=== PATIENT | male | born 1940 | race Caucasian/White ===

== ENCOUNTER 2021-03-11 16:47 | Inpatient (IN) ==
--- NOTE | 2021-03-11 17:59 | Emergency Department Note ---
HPI General Chief complaint: Shortness of Breath/Dyspnea Stated complaint: Sob Time Seen by Provider: 03/11/21 17:58 Source: EMS Mode of arrival: EMS Limitations: no limitations History of Present Illness HPI Narrative: Narrative: Patient presents by EMS with a complaint of cough and shortness of breath. Over the last week the patient has had gradually worsening cough symptoms and has been feeling short of breath. He is not been febrile or chilled. He has had some chronic nasal congestion and sinus discomfort for the last couple of months. His did call there primary care provider this morning and pres cription for azithromycin, losartan and montelukast was sent to pharmacy. Patient previously been taking lisinopril but was switched to losartan today. Patient's reports she went to [facility] to draft roller picker the prescriptions and when she got back the patient was having coughing fits which made her very nervous. He was feeling short of breath due to the coughing fits and she called for an ambulance to transport him. He has had fairly significant nasal drainage over the last several weeks and his cough has been mildly productive. He denies any prior history of heart attack or heart failure. He has been taking blood pressure medicines for quite some time. Patient denies any chest pain. He is not had any trouble sleeping and has not had to prop himself up more than normal. He is not any abdominal pain, nausea or vomiting. Sinus pain is in his forehead and below his eyes bilaterally. He is not had any aching in his teeth. Related Data Previous Rx's Medication Instructions Recorded montelukast 10 mg tablet 10 mg PO QHS #30 tab 02/09/21 losartan 50 mg tablet 50 mg PO QDAY #30 tab 02/15/21 azithromycin 250 mg tablet See Rx Instructions PO .COMPLEX #6 03/11/21 tab Allergies Allergy/AdvReac Type Severity Reaction Status Date / Time No Known Drug Allergies Allergy Verified 03/11/21 16:49 Review of Systems ROS ROS Narrative: Narrative: Pertinent positives and negatives as noted in HPI. All other systems reviewed and negative. [facility] Narrative Patient History Narrative: Narrative: Medical/Surgical/Family History All Active Problems (Updated 03/11/21 @ 23:19 by Cassie Gerber PA-C) Pneumonia (Acute) Hypoxia (Acute) Allergic rhinitis (Acute) Hyphema of left eye (Acute) Encounter for medication monitoring (Acute) Kidney stones (Chronic ~2006) Joint pain (Chronic) High cholesterol (Chronic) Arthritis (Chronic) Hyperlipidemia (Chronic) Rib pain (Chronic) Abdominal hernia (Chronic) Transient global amnesia (Chronic ~11/07/18) Carpal tunnel syndrome (Chronic) Acne rosacea (Chronic) Cervical radiculopathy (Chronic) Decreased hearing (Chronic) Osteoarthritis (Chronic) Actinic keratosis (Chronic) Elevated blood pressure reading (Chronic) Familial hypercholesterolemia (Chronic) Non-cardiac chest pain (Chronic) Hypertension (Chronic) Back pain (Chronic) Medical History (Updated 03/11/21 @ 23:19 by Cassie Gerber PA-C) Abdominal hernia Acne rosacea Actinic keratosis Arthritis Carpal tunnel syndrome Cervical radiculopathy Decreased hearing Elevated blood pressure reading Familial hypercholesterolemia High cholesterol Hyperlipidemia Joint pain Kidney stones (~2005) Osteoarthritis Rib pain Transient global amnesia (~11/07/18) 24 hrs Surgical History History of bilateral cataract extraction (~2013) History of carpal tunnel repair (~2006) History of carpal tunnel surgery of left wrist (~2015) History of hernia repair (~08/2011) TURP Ventral hernia repair History of prostate surgery (~1993) Family History Other No pertinent family history Social History Smoking Status: Smokeless tobacco Alcohol Intake Frequency: holiday/special occasion only Exam Narrative Narrative: Narrative: Vital signs noted General: No distress. Nontoxic-appearing. Skin: Warm. Dry. No rash. Normal color. Eyes: PERRL. EOMI. ENT: Mild discomfort to percussion of the frontal and maxillary sinuses bilater ally. Mouth: Membranes moist. Normal inspection. Neck: Good ROM. No meningeal signs. Supple. Cardiovascular: Regular rate and rhythm. No murmur. Respiratory: No respiratory distress. Lung sounds decreased in the bases. No rhonchi or rales. Gastrointestinal: Abdomen soft. No tenderness. No distention. Normal bowel sounds. No rebound tenderness or guarding. Back: Normal inspection. No CVA tenderness. No midline tenderness. Extremities: No tenderness. No swelling. No erythema. No edema. Good peripheral pulses x 4 Neurological: No focal neurological deficits observed. Alert. Oriented x 3 General Limitations: no limitations Course Course Course Narrative: 1 view chest x-ray reviewed by myself to be concerning for right lower lobe infiltrate. EKG shows normal sinus rhythm at a rate of 88. Your complexes are narrow at regular was. No ST elevation or depression Labs ordered and reviewed Patient is 87 to 90% on room air at rest and desats to 85% with minimal exertion. He does not wear supplemental oxygen at home and has no prior history of COPD or pulmonary condition Lactic and blood cultures were ordered Patient is medicated with Rocephin and azithromycin for pneumonia and discussed with the hospitalist service for admission. Patient seen in conjunction with attending ER physician, who did evaluate the patient bedside. Vital Signs Vital signs: Vital Signs Temperature 98.2 F 03/11/21 16:49 Pulse Rate 89 03/11/21 16:49 Respiratory Rate 22 03/11/21 16:49 Blood Pressure 140/100 03/11/21 16:49 Pulse Oximetry (%) 95 03/11/21 16:49 Temperature 98.2 F 03/11/21 22:41 Pulse Rate 86 03/11/21 22:41 Respiratory Rate 22 03/11/21 22:41 Blood Pressure 116/87 03/11/21 22:41 Pulse Oximetry (%) 96 03/11/21 22:41 MDM MDM Narrative Medical decision making narrative: Narrative: Lab Data Result diagrams: 03/11/21 19:33 03/11/21 19:33 Labs: Lab Results 03/11/21 03/11/21 Range/Units 19:33 19:33 WBC 10.5 (4.5-11.0) K/mcL RBC 4.57 (4.50-5.90) M/mcL Hgb 14.9 (13.5-16.5) g/dL Hct 45.8 (41.0-55.0) % MCV 100.2 H (80.0-100.0) fL MCH 32.6 (26.0-34.0) pg MCHC 32.5 (31.0-36.0) g/dL RDW 13.4 (11.5-14.5) % Plt Count 215 (140-440) K/mcL MPV 10.5 H (7.4-10.4) fL Neut % (Auto) 72.4 (38.0-78.0) % Lymph % (Auto) 13.1 L (15.0-49.0) % Giles % (Auto) 14.3 H (1.0-12.0) % Eos % (Auto) 0.1 (0.0-7.0) % Baso % (Auto) 0.1 (0.0-2.0) % Lymph # (Auto) 1.37 L (1.50-4.80) K/mcL Giles # (Auto) 1.49 H (0.10-0.90) K/mcL Eos # (Auto) 0.01 (0.00-0.70) K/mcL Baso # (Auto) 0.01 (0.00-0.20) K/mcL Absolute Neutrophils 7.57 (1.80-8.00) K/mcL Sodium 139 (133-145) mmol/L Potassium 4.1 (3.3-5.1) mmol/L Chloride 105 (96-108) mmol/L Carbon Dioxide 27 (22-30) mmol/L Anion Gap 7.0 L (8.0-16.0) BUN 12 (8-23) mg/dL Creatinine 0.6 L (0.7-1.2) mg/dL GFR Calculation 94 Glucose 100 (70-105) mg/dL Calcium 9.3 (8.6-10.4) mg/dL Total Bilirubin 0.4 (0.1-1.0) mg/dL AST 16 (<40) U/L ALT 15 (<40) U/L Alkaline Phosphatase 73 (39-117) U/L Total Protein 6.5 (5.9-8.4) gm/dL Albumin 3.8 (3.2-5.2) gm/dL Globulin 2.7 (2.2-3.7) gm/dL Albumin/Globulin Ratio 1.4 (1.0-2.3) ED POC Tests ED POC Tests: DEMARIO - SARS Antigen Negative Discharge Plan Patient/Caregiver Discharge Instructions Pt seen by TRANSMITTER SUPERVISOR/PA only: No Clinical Impression: Pneumonia, Hypoxia Patient Disposition: Xfer As Inpt ([facility]) Discharge Date/Time: 03/11/21 22:25
--- NOTE | 2021-03-11 19:39 | Emergency Department Note ---
ED Note Addendum Note Addendum: I evaluated this patient in conjunction with the physician health center assistant. I agree with the history examination and medical decision making as documented. In addition, I evaluated the patient in person with the following findings: Patient is complaining of shortness of breath. On exam, he is able to speak c omfortably and full sentences on room air but does have an oxygen saturation of 87 to 89% on room air. I discussed the plan for trial of ambulation and possible admission to the hospital and the patient and his are agreeable
[2021-03-11] MEDS ORDERED: ACETAMINOPHEN 325 MG TABLET PO ONE (20:04)
[2021-03-11] MEDS ORDERED: cefTRIAXone 2 GM in DEXTROSE 5% IN WATER 50 ML IV ONE (20:21)
[2021-03-11] MEDS ORDERED: AZITHROMYCIN 500 MG in DEXTROSE 5% IN WATER 250 ML IV ONE (20:37)
[2021-03-11 20:49] LABS: ALT/SGPT 15 U/L (<40); AST/SGOT 16 U/L (<40); Albumin 3.8 gm/dL (3.2-5.2); Albumin/Globulin Ratio 1.4 (1.0-2.3); Alkaline Phosphatase 73 U/L (39-117); Bilirubin,Total 0.4 mg/dL (0.1-1.0); Blood Urea Nitrogen 12 mg/dL (8-23); Calcium 9.3 mg/dL (8.6-10.4); Carbon Dioxide 27 mmol/L (22-30); Chloride 105 mmol/L (96-108); Globulin 2.7 gm/dL (2.2-3.7); Glomerular Filtration Rate 94; Glucose 100 mg/dL (70-105)
[2021-03-11 21:10] LABS: Basophils # (Auto) 0.01 K/mcL (0.00-0.20); Basophils % (Auto) 0.1 % (0.0-2.0); Eosinophils # (Auto) 0.01 K/mcL (0.00-0.70); Eosinophils % (Auto) 0.1 % (0.0-7.0); Hematocrit 45.8 % (41.0-55.0); Hemoglobin 14.9 g/dL (13.5-16.5); Lymphocytes # (Auto) 1.37 K/mcL (1.50-4.80); Lymphocytes % (Auto) 13.1 % (15.0-49.0); Mean Cell Volume 100.2 fL (80.0-100.0); Mean Corpuscular HGB Conc 32.5 g/dL (31.0-36.0); Mean Platelet Volume 10.5 fL (7.4-10.4); Monocytes # (Auto) 1.49 K/mcL (0.10-0.90); Monocytes % (Auto) 14.3 % (1.0-12.0); Neutrophils % (Auto) 72.4 % (38.0-78.0); Platelet Count 215 K/mcL (140-440); RBC 4.57 M/mcL (4.50-5.90); Red Cell Distribution Width 13.4 % (11.5-14.5); WBC 10.5 K/mcL (4.5-11.0)
--- NOTE | 2021-03-11 21:39 | Internal Med History&Physical ---
HPI History of Present Illness Patient information: Note initiated : 03/11/21 at 9:36 pm Service Date, if different from initiated Date: [] Patient: Dieudonne Lara 80 y/o M admitted on for Sob. Chief Complaint: SOB History of present illness: Mr. Lara is a 80 year old M with a history of hypertension who presents to the ER with 2 weeks onset of gradually progressive shortness of breath/cough. Over the last couple of days patient has been notice d increasing dyspnea progressing from maximal exertion to rest. He is endorses to associated yellow productive sputum but denies chest pain, diaphoresis, fever, chills, diarrhea, lightheadedness or dizziness. He further denies sick contacts Initial work-up in the ER was consistent with pneumonia. White count 10.5, normal biochemical profile. Patient was started on antibiotic coverage after cu ltures were drawn. Subsequently hospitalist service was consulted for admission. Covid test pending. Patient is completed Covid vaccination series. At the time of my evaluation patient is alert and oriented. He was able to answer most the questions and endorsed to history as above. He denies changes in medication, lightheadedness, dizziness, diaphoresis, joint pain arthralgia myalgias, diarrhea or dysuria. He further denies chest palpitation. Review of systems A 10 point review system was performed and is negative except for ones discussed above PFSH PFSH All Active Problems Allergic rhinitis (Acute) Hyphema of left eye (Acute) Encounter for medication monitoring (Acute) Kidney stones (Chronic ~2005) Joint pain (Chronic) High cholesterol (Chronic) Arthritis (Chronic) Hyperlipidemia (Chronic) Rib pain (Chronic) Abdominal hernia (Chronic) Transient global amnesia (Chronic ~11/07/18) Carpal tunnel syndrome (Chronic) Acne rosacea (Chronic) Cervical radiculopathy (Chronic) Decreased hearing (Chronic) Osteoarthritis (Chronic) Actinic keratosis (Chronic) Elevated blood pressure reading (Chronic) Familial hypercholesterolemia (Chronic) Non-cardiac chest pain (Chronic) Hypertension (Chronic) Back pain (Chronic) Medical History Abdominal hernia Acne rosacea Actinic keratosis Arthritis Carpal tunnel syndrome Cervical radiculopathy Decreased hearing Elevated blood pressure reading Familial hypercholesterolemia High cholesterol Hyperlipidemia Joint pain Kidney stones (~2005) Osteoarthritis Rib pain Transient global amnesia (~11/07/18) 24 hrs Surgical History History of bilateral cataract extraction (~2013) History of carpal tunnel repair (~2006) History of carpal tunnel surgery of left wrist (~2015) History of hernia repair (~08/2011) TURP Ventral hernia repair History of prostate surgery (~1993) Family History Other No pertinent family history Social History marital status: occupational status: retired physical activity: none alcohol intake frequency: holiday/special occasion only MEDS/ALLERGIES Home Medications and Allergies Home Medications Medication Instructions Recorded Confirmed Type montelukast 10 mg tablet 10 mg PO QHS #30 tab 02/09/21 02/09/21 Rx losartan 50 mg tablet 50 mg PO QDAY #30 tab 02/15/21 03/11/21 Rx azithromycin 250 mg tablet See Rx Instructions PO .COMPLEX #6 03/11/21 Rx tab Allergies Allergy/AdvReac Type Severity Reaction Status Date / Time No Known Drug Allergies Allergy Verified 03/11/21 16:49 EXAM Constitutional Vitals: Temp Pulse Resp BP Pulse Ox 98.2 F 87 22 147/93 94 03/11/21 16:49 03/11/21 20:31 03/11/21 16:49 03/11/21 20:31 03/11/21 20:31 Anxious admittedly short of breath Head normocephalic Oral cavity moist No ear nose discharge Eye movement symmetrical Neck supple no lymphadenopathy S1-S2 occasionally irregular, tachycardia Nonlabored breathing Nondistended nontender abdomen Lower extremity no cyanosis clubbing or joint swelling Skin no suspicious lesion Psych anxious but alert cooperative Neuro normal higher function DATA Data Completed and Pending Labs: Labs from last 24 hours 03/11/21 03/11/21 19:33 19:33 WBC 10.5 RBC 4.57 Hgb 14.9 Hct 45.8 MCV 100.2 H MCH 32.6 MCHC 32.5 RDW 13.4 Plt Count 215 MPV 10.5 H Neut % (Auto) 72.4 Lymph % (Auto) 13.1 L Sargent % (Auto) 14.3 H Eos % (Auto) 0.1 Baso % (Auto) 0.1 Lymph # (Auto) 1.37 L S[place]ent # (Auto) 1.49 H Eos # (Auto) 0.01 Baso # (Auto) 0.01 Absolute Neutrophils 7.57 Sodium 139 Potassium 4.1 Chloride 105 Carbon Dioxide 27 Anion Gap 7.0 L BUN 12 Creatinine 0.6 L GFR Calculation 94 Glucose 100 Calcium 9.3 Total Bilirubin 0.4 AST 16 ALT 15 Alkaline Phosphatase 73 Total Protein 6.5 Albumin 3.8 Globulin 2.7 Albumin/Globulin Ratio 1.4 A/P Narrative A/P Narrative: * Community-acquired pneumonia-empiric antibiotic coverage. Pulmonary toilet/aspiration precautions. PSI score 100 mandating hospitalization * History of hypertension resume home medications * Prophylaxis Heparin Plan * Inpatient admission * Antibiotic coverage * Aspiration cautions * Pre-existing medical condition management on home medications * Discharge planning Time Spent With Patient Time: Total time spent is greater than 50% in coordination of care (as documented) at patient's floor/unit and/or counseling patient:
[2021-03-11] MEDS ORDERED: cefTRIAXone 2 GM in DEXTROSE 5% IN WATER 50 ML IV SCH (23:05)
[2021-03-11] MEDS ORDERED: ACETAMINOPHEN 325 MG TABLET PO PRN (23:05)
[2021-03-11] MEDS ORDERED: hydrALAZINE 20 MG/ML VIAL IV PRN (23:05)
[2021-03-11] MEDS ORDERED: POTASSIUM CHLORIDE 20 MEQ PACKET PO PRN (23:05)
[2021-03-11] MEDS ORDERED: MELATONIN 3 MG TABLET PO PRN (23:05)
[2021-03-11] MEDS ORDERED: BISACODYL 10 MG SUPP.RECT PR PRN (23:05)
[2021-03-11] MEDS ORDERED: POLYETHYLENE GLYCOL 3350 17 GM PACKET PO PRN (23:05)
[2021-03-11] MEDS ORDERED: AZITHROMYCIN 500 MG in DEXTROSE 5% IN WATER 250 ML IV SCH (23:05)
[2021-03-11] MEDS ORDERED: POTASSIUM CHLORIDE 40 MEQ in DEXTROSE 5% IN WATER 500 ML IV PRN (23:05)
[2021-03-11] MEDS ORDERED: ONDANSETRON 4 MG/2 ML VIAL IV PRN (23:05)
[2021-03-11] MEDS ORDERED: ACETAMINOPHEN 650 MG/65 ML BAG IV PRN (23:05)
[2021-03-11] MEDS ORDERED: MAGNESIUM SULFATE 2 GM/50 ML BAG IV PRN (23:05)
[2021-03-11] MEDS ORDERED: ONDANSETRON 4 MG ODT TABLET SL PRN (23:05)
[2021-03-11] MEDS: 0.9 % SODIUM CHLORIDE 1,000 ML IV SCH (23:10)
[2021-03-11] MEDS: 0.9 % SODIUM CHLORIDE 10 ML SYRINGE IV SCH (23:10)
[2021-03-12] MEDS: guaiFENesin/CODEINE 10 ML UDC PO PRN ×3 (00:13→23:37)
--- NOTE | 2021-03-12 03:31 | XRay Report ---
CLINICAL INFORMATION: sob COMPARISON: 02/28/2020 FINDINGS: The heart is mildly enlarged. Mediastinum and pulmonary vessels are unremarkable. There is minor bibasilar atelectasis. No effusions. IMPRESSION: Mild cardiomegaly with minor bibasilar atelectasis. No CHF Interpreted and Authenticated by: García Sheppard 03/12/21
[2021-03-12] MEDS: 0.9 % SODIUM CHLORIDE 10 ML SYRINGE IV SCH ×3 (04:21→20:15)
[2021-03-12 07:08] LABS: Basophils # (Auto) 0.01 K/mcL (0.00-0.20); Basophils % (Auto) 0.1 % (0.0-2.0); Eosinophils # (Auto) 0.01 K/mcL (0.00-0.70); Eosinophils % (Auto) 0.1 % (0.0-7.0); Hemoglobin 14.9 g/dL (13.5-16.5); Lymphocytes # (Auto) 1.46 K/mcL (1.50-4.80); Lymphocytes % (Auto) 12.9 % (15.0-49.0); Mean Cell Volume 101.5 fL (80.0-100.0); Mean Corpuscular HGB Conc 32.4 g/dL (31.0-36.0); Mean Platelet Volume 10.5 fL (7.4-10.4); Monocytes # (Auto) 1.67 K/mcL (0.10-0.90); Monocytes % (Auto) 14.8 % (1.0-12.0); Neutrophils % (Auto) 72.1 % (38.0-78.0); Platelet Count 193 K/mcL (140-440); RBC 4.53 M/mcL (4.50-5.90); Red Cell Distribution Width 13.5 % (11.5-14.5); WBC 11.3 K/mcL (4.5-11.0)
[2021-03-12 07:53] LABS: ALT/SGPT 12 U/L (<40); AST/SGOT 18 U/L (<40); Albumin 3.5 gm/dL (3.2-5.2); Albumin/Globulin Ratio 1.3 (1.0-2.3); Alkaline Phosphatase 70 U/L (39-117); Bilirubin,Direct < 0.2 mg/dL (0-0.3); Bilirubin,Total 0.4 mg/dL (0.1-1.0); Blood Urea Nitrogen 10 mg/dL (8-23); Carbon Dioxide 25 mmol/L (22-30); Chloride 105 mmol/L (96-108); Globulin 2.6 gm/dL (2.2-3.7); Glomerular Filtration Rate 88; Glucose 91 mg/dL (70-105); Lactate Dehydrogenase 222 U/L (135-225); Phosphorous 2.9 mg/dL (2.5-4.5); Triglycerides 137 mg/dL (<150); Uric Acid 2.9 mg/dL (2.5-8.0)
[2021-03-12] MEDS: MULTIVIT,THER IRON,CA,FA & MIN 1 TABLET PO SCH (08:33)
[2021-03-12] MEDS: HEPARIN 5,000 UNIT/ML VIAL SQ SCH ×2 (08:45→20:20)
[2021-03-12] MEDS: DOCUSATE SODIUM 100 MG CAPSULE PO SCH ×2 (08:51→20:21)
[2021-03-12] MEDS: cefTRIAXone 2 GM in DEXTROSE 5% IN WATER 50 ML IV SCH (09:04)
[2021-03-12] MEDS: AZITHROMYCIN 500 MG in DEXTROSE 5% IN WATER 250 ML IV SCH (10:28)
--- NOTE | 2021-03-12 13:25 | Internal Med Progress Note ---
SUBJECTIVE Subjective Patient information: Note initiated : 03/12/21 at 1:22 pm Service Date, if different from initiated Date: [] Patient: Dieudonne Lara 80 y/o M admitted on 03/11/21 for Sob. Chief Complaint: [] Interval history: Mr. Lara is a 80 year old M with a history of hypertension who presents to the ER with 2 weeks onset of gradually progressive shortness of breath/cough. Over the last couple of days patient has been noticed increasing dyspnea progressing from maximal exertion to rest. He is endorses to associated yellow productive sputum but denies chest pain, diaphoresis, fever, chills, diarrhea, lightheadedness or dizziness. He further denies sick contacts Initial work-up in the ER was consistent with pneumonia. White count 10.5, normal biochemical profile. Patient was started on antibiotic coverage after cultures were drawn. Subsequently hospitalist service was consulted for admission. Covid test pending. Patient is completed Covid vaccination series. At the time of my evaluation patient is alert and oriented. He was able to answer most the questions and endorsed to history as above. He denies changes in medication, lightheadedness, dizziness, diaphoresis, joint pain arthralgia myalgias, diarrhea or dysuria. He further denies chest palpitation. 03/12-patient doing a lot better this morning. On room air. No overnight fever chills, stable hemodynamics, sputum culture gram-positive cocci. Covid nega tive. X-ray chest basilar infiltrate, white count 11.3, urine streptococci/mycoplasma negative. Continue antibiotic coverage. Possible discharge in 24 hours pending clinical improvement. Continue PT OT/diet interventions. Constitutional Vitals: Vital Signs Temp Pulse Resp BP Pulse Ox 98.2 F 85 17 125/67 95 03/12/21 11:23 03/12/21 11:23 03/12/21 11:23 03/12/21 11:23 03/12/21 11:23 Period Temp Pulse Resp BP Sys/Weiss Pulse Ox Last 24 Hr 98.2 F-99.7 F 76-110 17-24 116-161/67-101 88-97 Intake and Output 03/11/21 03/12/21 03/12/21 21:59 05:59 13:59 Intake Total 300 420 Output Total 1475 Balance 300 -1475 420 Weight 92.986 kg 87.815 kg alert oriented Nonlabored breathing Nondistended abdomen No anxiety Intake & Output: Intake & Output 03/11/21 03/12/21 03/12/21 21:59 05:59 13:59 Intake Total 300 420 Output Total 1475 Balance 300 -1475 420 Weight 92.986 kg 87.815 kg Intake: IV 300 300 Zithromax 500 mg In Dextrose 5% 250 250 in Water 250 ml @ 250 mls/hr IV Q24H [facility] Rx#:[id number] Rocephin 2 gm In Dextrose 5% in 50 50 Water 50 ml @ 100 mls/hr IV Q24H [facility] Rx#:[id number] Oral 120 Output: Void Amount 1475 Other: Meal Breakfast Percent of Meal Consumed 100% Urine Appearance Clear Urine Color Bright Yellow Stool Size Moderate Stool Color Brown Stool Consistency Formed # Voids 1 # Bowel Movements 1 OBJ DATA Labs CBC & Chem 7: 03/12/21 05:47 03/12/21 05:46 Labs: Abnormal Lab Results 03/12/21 03/11/21 03/11/21 05:47 19:33 19:33 WBC 11.3 H MCV 101.5 H 100.2 H MPV 10.5 H 10.5 H Lymph % (Auto) 12.9 L 13.1 L [place] % (Auto) 14.8 H 14.3 H Lymph # (Auto) 1.46 L 1.37 L [place] # (Auto) 1.67 H 1.49 H Absolute Neutrophils 8.13 H Anion Gap 7.0 L Creatinine 0.6 L Meds: Medications Acetaminophen (Acetaminophen 325 Mg Tablet) 650 mg PO Q4-6HP PRN; Protocol PRN Reason: Per Pain Protocol/Fever > 101 Bisacodyl (Bisacodyl 10 Mg Supp.Rect) 10 mg IN Q2-3DAYS PRN PRN Reason: Constipation Docusate Sodium (Docusate Sodium 100 Mg Capsule) 100 mg PO BID [facility] Last Admin: 03/12/21 08:51 Dose: Not Given Documented by: Guaifenesin/Codeine Phosphate (Guaifenesin/Codeine 10 Ml Udc) 10 ml PO Q4HP PRN PRN Reason: Cough Last Admin: 03/12/21 08:34 Dose: 10 ml Documented by: Heparin Sodium (Porcine) (Heparin 5,000 Unit/Ml Vial) 5,000 unit SQ Q12 [facility] Last Admin: 03/12/21 08:45 Dose: 5,000 unit Documented by: Hydralazine HCl (Hydralazine 20 Mg/Ml Vial) 10 mg IV Q4-6HP PRN PRN Reason: Hypertension Potassium Chloride 40 meq/ (Dextrose) 520 mls @ 130 mls/hr IV UD PRN PRN Reason: K+ = or < 3.5 Magnesium Sulfate (Magnesium Sulfate) 2 gm in 50 mls @ 50 mls/hr IV UD PRN PRN Reason: MG = or < 1.7 Acetaminophen (Ofirmev) 650 mg in 65 mls @ 130 mls/hr IV Q6HP PRN; Protocol PRN Reason: Per Pain Protocol/Fever > 101 Sodium Chloride (Sodium Chloride 0.9%) 1,000 mls @ 50 mls/hr IV .Q20H [facility] Stop: 03/14/21 11:04 Last Admin: 03/11/21 23:10 Dose: 50 mls/hr Documented by: Ceftriaxone Sodium 2 gm/ (Dextrose) 50 mls @ 100 mls/hr IV Q24H [facility]; Protocol Last Infusion: 03/12/21 09:35 Dose: Infused Documented by: Azithromycin 500 mg/ Dextrose 250 mls @ 250 mls/hr IV Q24H [facility]; Protocol Stop: 03/14/21 10:59 Last Infusion: 03/12/21 11:30 Dose: Infused Documented by: Iron Carb/Multivit/[place]/Folic Acid (Multivit,Ther Iron,Ca,Fa & Min 1 Tablet) 1 tab PO DAILY [facility] Last Admin: 03/12/21 08:33 Dose: 1 tab Documented by: Melatonin (Melatonin 3 Mg Tablet) 3 mg PO HSP PRN PRN Reason: Insomnia Ondansetron HCl (Ondansetron 4 Mg Odt Tablet) 4 mg SL Q4-6HP PRN; Protocol PRN Reason: Nausea And Vomiting Ondansetron HCl (Ondansetron 4 Mg/2 Ml Vial) 4 mg IV Q4-6HP PRN; Protocol PRN Reason: Nausea And Vomiting Polyethylene Glycol (Polyethylene Glycol 3350 17 Gm Packet) 17 gm PO DAILYP PRN PRN Reason: Constipation Potassium Chloride (Potassium Chloride 20 Meq Packet) 40 meq PO DAILYP PRN PRN Reason: K+ < 3.5 Senna/Docusate Sodium (Sennosides/Docusate Sodium 1 Tab Tablet) 1 tab PO HS BLESSING Sodium Chloride (0.9 % Sodium Chloride 10 Ml Syringe) 10 ml IV Q8 BLESSING Last Admin: 03/12/21 04:21 Dose: Not Given Documented by: A/P Narrative A/P Narrative: * Community-acquired pneumonia-clinical improvement noted on antibiotic coverage. Continue pulmonary toilet/aspiration precautions. * History of hypertension continue home medications * Prophylaxis Heparin Plan * Continue antibiotic coverage * pre-existing medical condition management on home medications * Discharge planning likely in 24 hours Time Spent With Patient Time: Total time spent is greater than 50% in coordination of care (as documented) at patient's floor/unit and/or counseling patient: QUALITY VTE Deep Vein Thrombosis/Pulmonary Embolism Present on Admission: No
[2021-03-12] MEDS: 0.9 % SODIUM CHLORIDE 1,000 ML IV SCH (19:37)
[2021-03-12] MEDS ORDERED: SENNOSIDES/DOCUSATE SODIUM 1 TAB TABLET PO SCH (21:00)
[2021-03-13] MEDS: 0.9 % SODIUM CHLORIDE 10 ML SYRINGE IV SCH (05:18)
[2021-03-13 07:40] LABS: ALT/SGPT 14 U/L (<40); AST/SGOT 18 U/L (<40); Albumin 3.4 gm/dL (3.2-5.2); Albumin/Globulin Ratio 1.4 (1.0-2.3); Alkaline Phosphatase 63 U/L (39-117); Bilirubin,Direct < 0.2 mg/dL (0-0.3); Bilirubin,Total 0.4 mg/dL (0.1-1.0); Blood Urea Nitrogen 12 mg/dL (8-23); Calcium 8.8 mg/dL (8.6-10.4); Carbon Dioxide 24 mmol/L (22-30); Chloride 106 mmol/L (96-108); Globulin 2.4 gm/dL (2.2-3.7); Glomerular Filtration Rate 88; Glucose 89 mg/dL (70-105); Lactate Dehydrogenase 205 U/L (135-225); Phosphorous 2.8 mg/dL (2.5-4.5); Triglycerides 126 mg/dL (<150); Uric Acid 3.3 mg/dL (2.5-8.0)
--- NOTE | 2021-03-13 07:58 | XRay Report ---
CLINICAL INFORMATION: Shortness of breath COMPARISON: 03/11/2021 FINDINGS: Heart size, mediastinum and pulmonary vessels are normal. There is minor bibasilar atelectasis. No developing infiltrates or effusions. IMPRESSION: Mild cardiomegaly and minor bibasilar atelectasis. No infiltrate Interpreted and Authenticated by: García Sheppard 03/13/21
[2021-03-13] MEDS: MULTIVIT,THER IRON,CA,FA & MIN 1 TABLET PO SCH (08:24)
[2021-03-13] MEDS: DOCUSATE SODIUM 100 MG CAPSULE PO SCH (08:25)
[2021-03-13] MEDS: HEPARIN 5,000 UNIT/ML VIAL SQ SCH (08:25)
[2021-03-13] MEDS: cefTRIAXone 2 GM in DEXTROSE 5% IN WATER 50 ML IV SCH (08:50)
[2021-03-13 09:04] LABS: Basophils # (Auto) 0.01 K/mcL (0.00-0.20); Basophils % (Auto) 0.1 % (0.0-2.0); Eosinophils # (Auto) 0.06 K/mcL (0.00-0.70); Eosinophils % (Auto) 0.9 % (0.0-7.0); Hematocrit 45.1 % (41.0-55.0); Hemoglobin 14.1 g/dL (13.5-16.5); Lymphocytes # (Auto) 1.54 K/mcL (1.50-4.80); Lymphocytes % (Auto) 22.8 % (15.0-49.0); Mean Cell Volume 105.1 fL (80.0-100.0); Mean Corpuscular HGB Conc 31.3 g/dL (31.0-36.0); Mean Platelet Volume 10.6 fL (7.4-10.4); Monocytes # (Auto) 1.18 K/mcL (0.10-0.90); Monocytes % (Auto) 17.5 % (1.0-12.0); Neutrophils % (Auto) 58.7 % (38.0-78.0); Platelet Count 184 K/mcL (140-440); RBC 4.29 M/mcL (4.50-5.90); Red Cell Distribution Width 13.6 % (11.5-14.5); WBC 6.8 K/mcL (4.5-11.0)
[2021-03-13] MEDS: AZITHROMYCIN 500 MG in DEXTROSE 5% IN WATER 250 ML IV SCH (10:34)
--- NOTE | 2021-03-13 11:17 | Discharge Summary ---
Discharge Provider Provider Patient information: Note initiated : 03/13/21 at 11:14 am Service Date, if different from initiated Date: [] Patient: Dieudonne Lara 80 y/o M admitted on 03/11/21 for Sob. Discharge diagnosis * Community-acquired pneumonia-clinical resolution noted on antibiotic coverage. Continue additional 5 days oral antibiotic * History of hypertension continue home medications Brief hospital course Mr. Lara is a 80 year old M with a history of hypertension who presents to the ER with 2 weeks onset of gradually progressive shortness of breath/cough. Over the last couple of days patient has been noticed increasing dyspnea progressing from maximal exertion to rest. He is endorses to associated yellow productive sputum but denies chest pain, diaphoresis, fever, chills, diarrhea, lightheadedness or dizziness. He further denies sick contacts Initial work-up in the ER was consistent with pneumonia. White count 10.5, normal biochemical profile. Patient was started on antibiotic coverage after cultures were drawn. Subsequently hospitalist service was consulted for admission. Covid test pending. Patient is completed Covid vaccination series. At the time of my evaluation patient is alert and oriented. He was able to answer most the questions and endorsed to history as above. He denies changes in medication, lightheadedness, dizziness, diaphoresis, joint pain arthralgia myalgias, diarrhea or dysuria. He further denies chest palpitation. 03/12-patient doing a lot better this morning. On room air. No overnight fever chills, stable hemodynamics, sputum culture gram-positive cocci. Covid negative. X-ray chest basilar infiltrate, white count 11.3, urine streptococci/mycoplasma negative. Continue antibiotic coverage. Possible discharge in 24 hours pending clinical improvement. Continue PT OT/diet interventions. 03/13-patient doing a lot better. White count down from 11.3-6.8, continue antibiotic coverage for additional 5 days, interval chest imaging minimal basilar infiltrate but improved since prior imaging. Patient feels ready for discharge, off oxygen. Persistent cough but improved. Date of admission: 03/11/21 22:30 Discharge date: 03/13/21 Primary care physician: Andres Hillman MD Consults: 03/11/21 Consult to Physician [CONS] Stat Comment: Consulting Provider: Alex Kaur Reason For Exam: Physician to Consult Discharge Meds Discharge Medications Home Medications PreserVision AREDS-2 1 PO BID 03/12/21 [History Last Taken Unknown] losartan 50 mg PO QPM 03/12/21 [History Confirmed 03/12/21 Last Taken 03/11/21 22:00] azithromycin 500 mg PO QDAY 1 Days #1 tab 03/13/21 [Rx Last Taken Unknown] cefdinir 300 mg PO BID #10 cap 03/13/21 [Rx Last Taken Unknown] codeine-guaifenesin [Maxi-Tuss AC] 5 ml PO ONCE #120 ml 03/13/21 [Rx Last Taken Unknown] COURSE Hospital Course Hospital course: . Discharge diagnosis: . Time Spent with Patient Time attestation: Total time spent providing and/or coordinating discharge services: EXAM Constitutional Vitals: Temp Pulse Resp BP Pulse Ox 98.6 F 107 H 15 134/78 96 03/13/21 06:58 03/13/21 06:58 03/13/21 06:58 03/13/21 06:58 03/13/21 08:15 Discharge Data Data Completed and Pending Labs on day of discharge: Labs from last 24 hours 03/13/21 03/13/21 05:21 05:21 WBC 6.8 RBC 4.29 L Hgb 14.1 Hct 45.1 MCV 105.1 H MCH 32.9 MCHC 31.3 RDW 13.6 Plt Count 184 MPV 10.6 H Neut % (Auto) 58.7 Lymph % (Auto) 22.8 [place] % (Auto) 17.5 H Eos % (Auto) 0.9 Baso % (Auto) 0.1 Lymph # (Auto) 1.54 [place] # (Auto) 1.18 H Eos # (Auto) 0.06 Baso # (Auto) 0.01 Absolute Neutrophils 3.97 Sodium 138 Potassium 4.3 Chloride 106 Carbon Dioxide 24 Anion Gap 8.0 BUN 12 Creatinine 0.7 GFR Calculation 88 Glucose 89 Uric Acid 3.3 Calcium 8.8 Phosphorus 2.8 Magnesium 2.3 Total Bilirubin 0.4 Direct Bilirubin < 0.2 GGT 20 AST 18 ALT 14 Alkaline Phosphatase 63 Lactate Dehydrogenase 205 Total Protein 5.8 L Albumin 3.4 Globulin 2.4 Albumin/Globulin Ratio 1.4 Triglycerides 126 Preliminary micro results at discharge 03/11/21 19:42 Blood Culture - Preliminary Blood 03/11/21 19:33 Blood Culture - Preliminary Blood 03/12/21 06:58 Gram Stain - Preliminary Sputum - Expectorated Discharge Plan Patient/Caregiver Discharge Instructions Activity: increase activity as tolerated Diet: Regular Diet Activity Restrictions/Additional Instructions: Azithromycin for additional 1 dose Oral cefdinir for 5 days Follow-up PCP in 5 to 7 days Return to ER worsening fever chills shortness of breath Prescriptions: New cefdinir 300 MG capsule 300 mg PO BID Qty: 10 RF: 0 azithromycin 500 mg tablet 500 mg PO QDAY 1 Days Qty: 1 RF: 0 codeine-guaifenesin [Maxi-Tuss AC] 10-100 mg/5 mL liquid 5 ml PO ONCE Qty: 120 RF: 0 Continued losartan 50 mg tablet 50 mg PO QPM RF: 0 PreserVision AREDS-2 1 PO BID RF: 0 Follow Up Plan Follow up with: Andres Hillman MD [Primary Care Provider] - Patient Disposition: Home, Self-Care Rehab Potential: Good I certify that the patient requires SNF services: No Overall status at discharge: patient is progressing back to baseline Discharge Orders: Discharge Order (Routine); Ordered 03/13/21 Ordered By: Alex ANNE VTE Deep Vein Thrombosis/Pulmonary Embolism Present on Admission: No
== END 2021-03-13 12:55 | disposition home or self-care (01) | DRG 195 ==
LOC: ED 16:47 → MEDSUR 22:25
PROVIDERS: ADMIT Internal Medicine; ATTEND Internal Medicine